=== PATIENT | male | born 1970 | race Asian ===

== ENCOUNTER 2023-07-08 13:38 | Outpatient (CLI) | payer OTHER ==
--- NOTE | 2023-07-08 14:38 | Sleep Patient Instructions ---
Sleep Center Visit Summary - Patient Visit Information Reason for Visit: Initial consult for evaluation of sleep disordered breathing and other sleep issues. - Patient Instructions Instructions Attached: Sleep Study Home Monitor Additional Instructions: You will be completing a sleep study, either an in-lab polysomnography (PSG) or home sleep study (HST). You will follow-up in the sleep care office after the sleep study is completed to hear the results and talk about therapy, if needed. You will be called by our office staff to schedule this appointment, but you may contact us with any questions. - Clinic Information Contact: [facility] [address] [place] [address] [email or web address] T: [phone]
[2023-07-08 14:42] VITALS: BP 128/86; O2SAT 100
--- NOTE | 2023-07-08 14:42 | SLEEP CARE CONSULTATION ---
Information from patient questionnaire entered by Jak Schreiber. I have reviewed and concur with the information entered by Jak Schreiber. This document represents the service I personally performed and the decisions made by me, Michelle Aragon ARNP. History of Present Illness Service Date and Time: 07/08/2023 1338 Reason for Visit: New patient Accompanied by: Spouse Chief Complaint: reports: Insomnia, Snoring, Observed pauses in breathing, Fatigue, Frequent awakenings at night Date of Onset: 20 + YRS Usual bedtime: 10PM-12AM Time it takes to fall asleep: 30-60MIN Snores at night: Yes Observed to quit breathing while asleep: Yes Sleeps alone due to snoring: No Number of times waking at night: 2-3 Reasons for waking at night: reports: Snoring, Gasping for air, Bathroom, Other (UNKNOWN). denies: Choking Toss, Turn, or Twitch while sleeping: Yes Recalls having dreams: Yes Usually gets out of bed at: 6AM Feels refreshed in the morning: No Morning headache: Yes (almost daily; goes away within hour after drinking water) Sleepy or fatigued during the day: Yes Ever fallen asleep while driving: Yes (drowsy driving but no accidents) Takes day naps: No (sometimes will nap if falls asleep when watching movie) Additional HPI information: I had the pleasure of seeing MESERET WEST today regarding the possibility of him having a sleep disorder. His current complaints are fatigue, frequent night awakenings, insomnia, observed pauses in breathing and snoring. He says his and children tell him his snoring is loud and wakes them up. His will sleep separately often. He is not feeling rested from sleeping and will fall asleep when watching TV. He had a sleep study in [place] but is not currently on any treatment. He says he never go results from the sleep study he did but he did not sleep much that night. His says she has noticed him "jolt" in his sleep and then turn over and go back to sleep. - Parasomnia Symptoms Ever been unable to move upon waking from sleep: Yes (one month ago was only time) Walks in sleep: No Talks in sleep: No Ever acted out dreams in sleep: No Ever felt weak in the knees when startled or emotional: Yes (has fallen to ground) Bothered by creepy, crawly, restless sensations in legs: Yes (several times a week; when sitting or laying down) Problems with memory or concentration: Yes (both) Subjective Initial [place] Sleepiness Scale score: 19 (06/05/2023) Past Medical History Past Medical History: reports: Hypertension, Arthritis, Gout, Anxiety, Depression Social History 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 Patient is and lives in . Have you smoked in the past 12 months: No Alcohol use: No Caffeine use: Yes Caffeine amount and frequency: 1 CUP 5-6 WEEK Family History Family history of sleep disordered breathing: Yes Family Hx Sleep Apnea: Father: Snoring, Sleep apnea - Treated, Sibling: Snoring, Sleep apnea - Treated, Sleep apnea - Untreated Allergies and Home Medications Known drug allergies: No Drug allergies reviewed: Yes Home medication list reviewed: Yes Allergy and home medication list: Allergies No Known Drug Allergies Allergy (Verified 07/07/23 10:51) Home Medications Medication Instructions Recorded Confirmed Last Taken Type Acetaminophen [Tylenol] See Rx Instructions .ROUTE .COMPLEX 07/07/23 07/08/23 Unknown History Benazepril HCl See Rx Instructions .ROUTE .COMPLEX 07/07/23 07/08/23 Unknown History Ibuprofen [Advil] See Rx Instructions .ROUTE .COMPLEX 07/07/23 07/08/23 Unknown History Mv-Min/Folic/K1/Lycopen/Lutein See Rx Instructions .ROUTE .COMPLEX 07/07/23 07/08/23 Unknown History [Centrum Men 50 Plus Minis Tab] SUMAtriptan [Imitrex] See Rx Instructions .ROUTE .COMPLEX 07/07/23 07/08/23 Unknown History Sildenafil Citrate [Sildenafil] See Rx Instructions .ROUTE .COMPLEX 07/07/23 07/08/23 Unknown History Review of Systems Weight gain over past 5 years: 5 Cardiovascular: reports: high blood pressure, chest pain, leg or foot swelling Respiratory: reports: chronic cough Gastrointestinal: reports: heartburn, diarrhea Urinary: reports: frequency Neurological: reports: headaches Psychiatric: reports: anxiety, depression Ear/Nose/Throat: reports: dry mouth/throat. denies: tonsillectomy Endocrine: reports: sluggishness, increased urination Musculoskeletal: reports: joint pain, back pain, muscle pain or cramping Immunologic: reports: allergies to food or environment Physical Exam Vital signs obtained and entered by: JAK Pugh MA Blood Pressure: 128/86 (LEFT ARM) Cuff size: regular Heart Rate: 89 O2 Saturation: 100 Height: 5 ft 5 in Weight: 164 lb 6.4 oz Body Mass Index: 27.3 BMI Classification: Overweight Neck circumference: 15.5 Mouth and throat: narrow oropharynx Soft palate: long Hard palate: normal Uvula: normal Uvula visualization: 0% Mallampati Class IV Tongue: enlarged in size with teeth terrazas on lateral edges Tonsils: small Neck: normal w/o lymphadenopathy or thyromegaly Heart: regular rate and rhythm Lungs: clear bilaterally Impression and Plan 1. Suspected Obstructive Sleep Apnea-Hypopnea Syndrome, as suggested by a history of loud and irregular snoring, observed cessation of breath while asleep, gasping or choking in sleep, morning headache, frequent awakening during the night, unrefreshed sleep, cognitive impairment, and excessive daytime sleepiness. Narrow oropharynx and obesity are common predisposing factors for obstructive sleep apnea-hypopnea syndrome. I recommend proceeding to polysomnography to confirm the diagnosis and to assess severity. If the patient has significant sleep disordered breathing, a manual CPAP titration study will also be performed to find the optimal treatment pressure. I informed the patient of what the sleep studies involve and after some discussion, obtained agreement to proceed. The pathophysiology of obstructive sleep apnea-hypopnea syndrome was discussed with the patient and health risks of cardiovascular and cerebrovascular disease if not treated. Risks of drowsy driving discussed in detail and patient advised to avoid long distance driving and to socket puller at the first sign of drowsiness. Patient agreed to plan. * Schedule polysomnography. * Avoid long distance driving or driving when feeling sleepy. * Avoid alcohol, sedative and muscle relaxant around bedtime. * Attempt to lose weight. * Review instructions provided by trained office staff on how to prepare for the sleep study. * Return for follow-up after sleep study completed. Counseling Topics: Weight loss health impact Plan: PSG Visit Type: In Office Time Spent with Patient (minutes): 31 Provider Statement: I spent 100% of the Face to Face Visit with the patient with greater than 50% spent counseling the patient and coordination of care.
== END 2023-07-08 13:39 | disposition home or self-care (01) ==
LOC: SC 13:38
PROVIDERS: ATTEND Nurse Practitioner Family
DX: R06.83 Snoring (principal); G47.8 Other sleep disorders; R06.81 Apnea, not elsewhere classified; R51.9 Headache, unspecified; G47.10 Hypersomnia, unspecified; R53.83 Other fatigue; I10 Essential (primary) hypertension; F32.A Depression, unspecified; E66.3 Overweight; Z68.27 Body mass index [BMI] 27.0-27.9, adult
CPT/HCPCS: 99203; 99212

== ENCOUNTER 2023-07-30 13:40 | Outpatient (CLI) | payer OTHER | END 2023-07-30 13:41 | disposition home or self-care (01) | LOC: SC 13:40 | PROVIDERS: ATTEND Nurse Practitioner Family | DX: R09.02 Hypoxemia (principal) | CPT/HCPCS: 95806 ==

== ENCOUNTER 2023-08-11 09:46 | Outpatient (CLI) | payer OTHER ==
--- NOTE | 2023-08-11 10:42 | Sleep Patient Instructions ---
Sleep Center Visit Summary - Patient Visit Information Reason for Visit: Follow-up sleep study - Patient Instructions Additional Instructions: You will be completing a sleep study, an in-lab polysomnography (PSG). You will follow-up in the sleep care office after the sleep study is completed to hear the results and talk about therapy, if needed. You will be called by our office staff to schedule this appointment, but you may contact us with any questions. - Clinic Information Contact: [facility] [address] [place] [address] [email or web address] T: [phone]
--- NOTE | 2023-08-11 10:44 | SLEEP CARE CONSULTATION ---
Information from patient questionnaire entered by Mary Schreiber. I have reviewed and concur with the information entered by Mary Schreiber. This document represents the service I personally performed and the decisions made by , Michelle Aragon ARNP. History of Present Illness Service Date and Time: 08/11/2023 0946 Initial [place] Sleepiness Scale score: 19 (06/05/2023) Current [place] Sleepiness Scale score: 24 Additional HPI information: MESERET WEST returns for follow up and results of the recently performed home sleep study. The patient was informed of the following findings: No significant sleep disordered breathing with an average AHI of 1.9 and miguel oxygen saturation of 86%. I explained the pathophysiology behind obstructive sleep apnea. Patient does not have sleep apnea and was advised how weight gain could increase the risk of developing sleep apnea in the future. Patient has moderate snoring. Snoring can be reduced by weight loss. Weight loss is best achieved with diet consult. Patient instructed to contact PCP for referral. Snoring can also be treated with an oral appliance from a dentist. Advised to check insurance coverage. In addition, an ENT evaluation can be do to see if other treatment is indicated. Patient does not drink alcohol. Patient was cautioned about risks of drowsy driving until sleepiness symptoms resolve. Sleep Study - Results Type of Sleep Study: Home sleep study (COMPLETED 07/30/23) Polysomnography/Home Sleep Study results: Physician Impression: The quality of the study is fair due to partial loss of pulse oximetry signal. The length of the study is adequate (> 240 minutes). Please also see the tabulated and graphic data. 1. No significant sleep disordered breathing, with an AHI of 1.9/hr and miguel SaO2 of 86%. During the study, the patient had 4 apneas (4 obstructive, 0 central, 0 mixed) and 4 hypopneas. The longest episode lasted 58.5 seconds. The patient slept adequately in supine position (supine AHI was 1.9 and non-supine, 1.90). 2. Hypoxemia (ICD-10 R09.02), minimal, with the lowest oxygen saturation of 86 % and 1.0 minutes with SaO2 under 90%. Baseline oxygen saturation was normal (Average oxygen saturation was 96%). Allergies and Home Medications Known drug allergies: No Drug allergies reviewed: Yes Home medication list reviewed: Yes (increased benazepril to 10 mg) Allergy and home medication list: Allergies No Known Drug Allergies Allergy (Verified 08/07/23 13:32) Review of Systems Review of systems same as previous: Yes (no changes) Physical Exam Vital signs obtained and entered by: MICHELLE GATES Blood Pressure: 142/101 Cuff size: regular (left arm) Heart Rate: 67 O2 Saturation: 100 Height: 5 ft 5 in Weight: 170 lb 9.6 oz Body Mass Index: 28.3 BMI Classification: Overweight Impression and Plan 1. Snoring but no significant sleep disordered breathing. Patient advised that often weight loss will reduce snoring as well as apnea risk. An oral appliance can also be used for snoring. This would require a dental consultation. Patient cautioned not to use other online appliances as can cause bite issues. Patient is advised to check if insurance will cover. An ENT consult can also be helpful to determine if any other treatment is an option. 2. Suspected Obstructive Sleep Apnea-Hypopnea Syndrome, as suggested by a history of loud and irregular snoring, observed cessation of breath while asleep, gasping or choking in sleep, morning headache, frequent awakening during the night, unrefreshed sleep, cognitive impairment, and excessive daytime sleepiness. His HST was not conclusive for sleep disordered breathing but was a fair study due to loss of pulse oximetry signal. I recommend proceeding to polysomnography to confirm the diagnosis and to assess severity. I obtained agreement to proceed. The pathophysiology of obstructive sleep apnea-hypopnea syndrome was discussed with the patient and health risks of cardiovascular and cerebrovascular disease if not treated. Risks of drowsy driving discussed in detail and patient advised to avoid long distance driving and to pick pulling machine operator at the first sign of drowsiness. Patient agreed to plan. 3. Overweight, unspecified. Currently patients BMI is 28.6. Obesity increases the risk of apnea, CPAP pressure requirements and overall health risks especially cardiovascular and diabetes. Thus patient is advised to lose weight. * In lab PSG * Attempt to lose weight * Avoid alcohol consumption near bedtime * The patient is cautioned about driving until sleepiness is completely resolved. * Return after sleep study for follow up. Counseling Topics: Weight loss health impact Plan: in lab PSG Visit Type: In Office Time Spent with Patient (minutes): 21 Provider Statement: I spent 100% of the Face to Face Visit with the patient with greater than 50% spent counseling the patient and coordination of care.
[2023-08-11 10:52] VITALS: BP 142/101; O2SAT 100
== END 2023-08-11 09:47 | disposition home or self-care (01) ==
LOC: SC 09:46
PROVIDERS: ATTEND Nurse Practitioner Family
DX: R06.83 Snoring (principal); R06.81 Apnea, not elsewhere classified; G47.8 Other sleep disorders; R51.9 Headache, unspecified; R41.89 Other symptoms and signs involving cognitive functions and awareness; G47.10 Hypersomnia, unspecified; E66.3 Overweight; Z68.28 Body mass index [BMI] 28.0-28.9, adult
CPT/HCPCS: 99212; 99213

== ENCOUNTER 2023-08-11 20:57 | Outpatient (CLI) | payer OTHER | END 2023-08-11 20:58 | disposition home or self-care (01) | LOC: SC 20:57 | PROVIDERS: ATTEND Nurse Practitioner Family | DX: R06.83 Snoring (principal); G47.10 Hypersomnia, unspecified; R53.83 Other fatigue; G47.8 Other sleep disorders; R51.9 Headache, unspecified; R06.81 Apnea, not elsewhere classified; E66.3 Overweight; I10 Essential (primary) hypertension; F32.A Depression, unspecified; R41.89 Other symptoms and signs involving cognitive functions and awareness; Z68.28 Body mass index [BMI] 28.0-28.9, adult | CPT/HCPCS: 95810; 99212; 99213 ==

== ENCOUNTER 2023-09-15 09:08 | Outpatient (CLI) | payer OTHER ==
--- NOTE | 2023-09-15 09:47 | Sleep Patient Instructions ---
Sleep Center Visit Summary - Patient Visit Information Reason for Visit: Sleep study follow-up - Patient Instructions Instructions Attached: Insomnia, Insomnia Tx Additional Instructions: Your sleep study today was negative for significant sleep disordered breathing. You were found to have episodes of snoring. There are different ways to control snoring including weight loss, oral devices made by a dentist or surgical options through ENT specialist. You should not use oral devices that do not fit properly because they can affect your bite. You should also check insurance coverage of oral devices for snoring because they may not be cover well. You may obtain a referral to an ENT specialist through your primary provider. You are concerned about your insomnia issues and you will be filling our a 2 week sleep diary and following up with Dr. Rodrigez in 1-2 months. Follow-up in 1-2 months - Clinic Information Contact: [facility] [address] [place] [address] [email or web address] T: [phone]
--- NOTE | 2023-09-15 09:53 | SLEEP CARE CONSULTATION ---
Information from patient questionnaire entered by Mary Schreiber. I have reviewed and concur with the information entered by Mary Schreiber. This document represents the service I personally performed and the decisions made by , Michelle Aragon ARNP. History of Present Illness Service Date and Time: 09/15/2023 09 Initial [place] Sleepiness Scale score: 19 (06/05/2023) Current [place] Sleepiness Scale score: 21 Additional HPI information: MESERET WEST returns for follow up and results of the recently performed polysomnography. The patient was informed of the following findings: No significant sleep disordered breathing with an average AHI of 0.7 and miguel oxygen saturation of 93%. Patient did not sleep supine. He had two prolonged awakenings during the night. I explained the pathophysiology behind obstructive sleep apnea. Patient does not have sleep apnea and was advised how weight gain could increase the risk of developing sleep apnea in the future. I strongly encouraged the patient to lose weight. Patient has light to moderate snoring. Snoring can be reduced by weight loss. Weight loss is best achieved with diet consult. Patient instructed to contact PCP for referral. Snoring can also be treated with an oral appliance from a dentist. Advised to check insurance coverage. In addition, an ENT evaluation can be do to see if other treatment is indicated. Patient does not drink alcohol. Patient was cautioned about risks of drowsy driving until sleepiness symptoms resolve. Sleep Study - Results Type of Sleep Study: Polysomnography (COMPLETED 07/30/23 COMPLETED 08/11/23) Polysomnography/Home Sleep Study results: IMPRESSION: The quality of the study is good. The patient had reduced sleep efficiency due to two prolonged awakenings during the night.. The sleep architecture was abnormal for mild sleep fragmentation and reduced amount of time spent in slow wave sleep (N3). Respiratory monitoring showed no significant sleep disordered breathing (AHI = 0.7) or hypoxia (miguel oxygen saturation of 93%). The patient did not sleep supine during this study (supine AHI = 0.0; non-supine = 0.68). Snore was light to moderate in intensity. There was no significant periodic leg movement of sleep. Cardiac rhythm was normal sinus rhythm without significant arrhythmia. No abnormal behavior (parasomnia) observed during the night. Allergies and Home Medications Known drug allergies: No Drug allergies reviewed: Yes Home medication list reviewed: Yes (no changes) Allergy and home medication list: Allergies No Known Drug Allergies Allergy (Verified 09/11/23 10:50) Review of Systems Review of systems same as previous: Yes (no changes) Physical Exam Vital signs obtained and entered by: MICHELLE GATES Blood Pressure: 135/90 Cuff size: regular (left arm) Heart Rate: 71 O2 Saturation: 99 Height: 5 ft 5 in Weight: 170 lb 3.2 oz Body Mass Index: 28.3 BMI Classification: Overweight Impression and Plan 1. Insomnia, unspecified. He has trouble with only being able to sleep for 3-4 hours nightly. He thought it was normal for everyone. He had excessive daytime sleepiness at 21/24 [place] scale. Insomnia is generally caused by an irregular sleep schedule, spending too much time in bed, napping, caffeine, electronics, lack of a relaxing bedtime ritual and clock watching. Other factors can include anxiety/depression, pain, medications, and obstructive sleep apnea. I will have him come back for evaluation of his insomnia. A sleep diary will be completed for the next 2 weeks to assist implementation of recommendations and for further evaluation of sleep concerns. 2. Snoring but no significant sleep disordered breathing. Patient did not sleep supine. Sleep disordered breathing when sleeping supine cannot be ruled out. Patient advised that often weight loss will reduce snoring as well as apnea risk. An oral appliance can also be used for snoring. This would require a dental consultation. Patient cautioned not to use other online appliances as can cause bite issues. A list of accredited dentists in area and one local dentist who makes oral appliances given. Patient is advised to check if insurance will cover. An ENT consult can also be helpful to determine if any other treatment is an option. 3. Overweight, unspecified. Currently patients BMI is 28.3. Obesity increases the risk of apnea, CPAP pressure requirements and overall health risks especially cardiovascular and diabetes. Thus patient is advised to lose weight. * 2 weeks of sleep diary * Attempt to lose weight * The patient is cautioned about driving until sleepiness is completely resolved. * Return in 1-2 months for follow up on insomnia. Counseling Topics: Weight loss health impact Follow up with Sleep Care in: 1-2 months (for insomnia) Visit Type: In Office Time Spent with Patient (minutes): 20 Provider Statement: I spent 100% of the Face to Face Visit with the patient with greater than 50% spent counseling the patient and coordination of care.
[2023-09-15 09:54] VITALS: BP 135/90; O2SAT 99
== END 2023-09-15 09:09 | disposition home or self-care (01) ==
LOC: SC 09:08
PROVIDERS: ATTEND Nurse Practitioner Family
DX: R06.83 Snoring (principal); G47.00 Insomnia, unspecified; E66.3 Overweight; Z68.28 Body mass index [BMI] 28.0-28.9, adult
CPT/HCPCS: 99212; 99213